=== PATIENT | female | born 1970 ===

== ENCOUNTER 2021-07-10 13:46 | Inpatient (IN) | payer MEDICAID, OTHER ==
[~2021-07-10] VITALS: Ht 162.6 cm; Wt 92.5 kg
[2021-07-10] MEDS ORDERED: SODIUM CHLORIDE 0.9% 1,000 ML IV ONE (14:45)
[2021-07-10] MEDS ORDERED: PIPERACILLIN-TAZOB 3.375GM 100 ML IV ONE (14:45)
[2021-07-10 15:09] LABS: Basophils # (auto) 0 10 ^3/uL (0-0.2); Hemoglobin 12.3 g/dL (12.2-16.2); Lymphocytes # (auto) 1.8 10 ^3/uL (0.4-5.4); Lymphocytes % (auto) 36.5 % (10.0-50.0); Mean Corpuscular Hemoglobin 26.7 pg (28.0-32.0); Mean Corpuscular Hgb Conc. 33.1 g/dL (32.0-36.0); Mean Corpuscular Volume 80.7 fL (80.0-100.0); Neutrophils # (auto) 2.6 10 ^3/uL (1.6-8.6); Nucleated Red Blood Cells % 0.1 %; Red Blood Cells 4.61 10^6/uL (4.0-5.20)
[2021-07-10 15:11] LABS: Basophils % (auto) 0.4 % (0.0-2.0); Eosinophils # (auto) 0.1 10 ^3/uL (0-0.8); Hematocrit 37.2 % (36.0-46.0); Monocytes # (auto) 0.3 10 ^3/uL (0-1.3); Neutrophils % (auto) 53.1 % (37.0-80.0); Red Cell Distribution Width 15.9 % (11.8-14.3); White Blood Cell 4.9 10^3/uL (4.4-10.8)
[2021-07-10 15:26] LABS: Albumin 2.7 g/dL (3.4-5.0); Anion Gap 8 (5-15); Blood Urea Nitrogen 14 mg/dL (7-18); Calcium 9.5 mg/dL (8.5-10.1); Carbon Dioxide 23 mmol/L (21-32); Chloride 109 mmol/L (98-107); GFR African American 218 mL/min; GFR Non-African American 180 mL/min; Glucose 92 mg/dL (74-106); Potassium 3.7 mmol/L (3.5-5.1); Sodium 140 mmol/L (136-145)
[2021-07-10 15:31] LABS: Alanine Aminotransferase 37 U/L (13-56); Alkaline Phosphatase 134 U/L (45-117); Aspartate Aminotransferase 67 U/L (15-37); Bilirubin, Total 0.5 mg/dL (0.2-1.0); Total Protein 7.6 g/dL (6.4-8.2)
[2021-07-10] MEDS ORDERED: DOCUSATE SOD 100 MG CAP PO PRN (18:15)
[2021-07-10] MEDS ORDERED: MORPHINE SULFATE INJECTION 2 MG/ML SYRG IV PRN (18:15)
[2021-07-10] MEDS ORDERED: NITROGLYCERIN 0.4 MG SL TAB SL PRN (18:15)
[2021-07-10] MEDS ORDERED: HYDROcodone-ACET 5/325MG TAB PO PRN (18:15)
[2021-07-10] MEDS ORDERED: VANCOMYCIN PER PHARMACY 0 MG IV SCH (18:15)
[2021-07-10] MEDS ORDERED: VANCOMYCIN 1GM/250ML 250 ML IV ONE (18:30)
[2021-07-10] MEDS: MORPHINE SULFATE INJECTION 2 MG/ML SYRG IV PRN (20:57)
[2021-07-10] MEDS: ONDANSETRON HCL 4 MG/2 ML VIAL IV PRN (20:57)
[2021-07-10] MEDS: VANCOMYCIN 1GM/250ML 250 ML IV SCH (22:27)
[2021-07-11] VITALS (7 sets, daily range): BP systolic 100–127; BP diastolic 46–76
[2021-07-11] MEDS: ACETAMINOPHEN 500 MG TAB PO PRN (00:18)
[2021-07-11] MEDS: MORPHINE SULFATE INJECTION 2 MG/ML SYRG IV PRN ×4 (01:47→21:34)
[2021-07-11 06:44] LABS: BUN/Creatinine Ratio 36.1; Calcium 9.4 mg/dL (8.5-10.1); Potassium 3.6 mmol/L (3.5-5.1)
[2021-07-11] MEDS: ONDANSETRON HCL 4 MG/2 ML VIAL IV PRN ×3 (08:34→21:34)
[2021-07-11] MEDS: levoFLOXacin 500MG 100 ML IV SCH (08:34)
[2021-07-11] MEDS: PANTOPRAZOLE 40 MG TAB PO SCH (09:59)
[2021-07-11] MEDS: ENOXAPARIN SOD 40 MG/0.4 ML SYRINGE SC SCH (09:59)
[2021-07-11] MEDS: VANCOMYCIN 1GM/250ML 250 ML IV SCH ×2 (10:00→21:16)
[2021-07-11] MEDS ORDERED: LACTULOSE 20Gm/30ML SOLN PO ONE (14:00)
[2021-07-11] MEDS: MUPIROCIN 2% OINT 15gm or 22gm TOP SCH (21:16)
[2021-07-11] MEDS: metroNIDAZOLE 500MG/100ML 100 ML IV SCH (22:45)
[2021-07-12 05:00] VITALS: BP 100/65
[2021-07-12] MEDS: metroNIDAZOLE 500MG/100ML 100 ML IV SCH ×3 (05:33→22:30)
[2021-07-12] MEDS: MORPHINE SULFATE INJECTION 2 MG/ML SYRG IV PRN ×3 (06:30→20:42)
[2021-07-12] MEDS ORDERED: IOHEXOL 300 MG/ML 100ML BOTTLE IJ ONE (08:39)
[2021-07-12 09:00] VITALS: BP 113/72
[2021-07-12] MEDS: ENOXAPARIN SOD 40 MG/0.4 ML SYRINGE SC SCH (09:29)
[2021-07-12] MEDS: PANTOPRAZOLE 40 MG TAB PO SCH (09:30)
[2021-07-12] MEDS: MUPIROCIN 2% OINT 15gm or 22gm TOP SCH ×2 (09:42→22:30)
[2021-07-12] MEDS: levoFLOXacin 500MG 100 ML IV SCH (09:42)
[2021-07-12] MEDS ORDERED: cefTRIAXone 1GM/50ML D5W 50 ML IV ONE (11:15)
[2021-07-12 13:00] VITALS: BP 120/78
[2021-07-12] MEDS: ONDANSETRON HCL 4 MG/2 ML VIAL IV PRN ×2 (16:35→20:42)
[2021-07-12 17:03] VITALS: BP 136/72
[2021-07-12 22:00] VITALS: BP 104/73
[2021-07-13] MEDS: MORPHINE SULFATE INJECTION 2 MG/ML SYRG IV PRN ×4 (02:13→20:16)
[2021-07-13] MEDS: ONDANSETRON HCL 4 MG/2 ML VIAL IV PRN ×4 (02:13→20:17)
[2021-07-13 05:00] VITALS: BP 123/83
[2021-07-13] MEDS: metroNIDAZOLE 500MG/100ML 100 ML IV SCH ×3 (05:39→22:18)
[2021-07-13] MEDS: cefTRIAXone 1GM/50ML D5W 50 ML IV SCH (10:01)
[2021-07-13] MEDS: MUPIROCIN 2% OINT 15gm or 22gm TOP SCH ×2 (10:02→22:18)
[2021-07-13] MEDS: ENOXAPARIN SOD 40 MG/0.4 ML SYRINGE SC SCH (10:02)
[2021-07-13] MEDS: PANTOPRAZOLE 40 MG TAB PO SCH (10:02)
[2021-07-13 12:51] VITALS: BP 121/83
[2021-07-13] MEDS: ACETAMINOPHEN 500 MG TAB PO PRN ×2 (16:30→19:06)
[2021-07-13 17:00] VITALS: BP 104/64
[2021-07-13 22:00] VITALS: BP 111/76
[2021-07-14] MEDS: MORPHINE SULFATE INJECTION 2 MG/ML SYRG IV PRN ×4 (01:45→21:10)
[2021-07-14] MEDS: ONDANSETRON HCL 4 MG/2 ML VIAL IV PRN (01:45)
[2021-07-14 05:00] VITALS: BP 127/80
[2021-07-14] MEDS: metroNIDAZOLE 500MG/100ML 100 ML IV SCH ×3 (05:40→21:09)
[2021-07-14 09:00] VITALS: BP 117/61
[2021-07-14] MEDS: cefTRIAXone 1GM/50ML D5W 50 ML IV SCH (09:00)
[2021-07-14] MEDS: PANTOPRAZOLE 40 MG TAB PO SCH (10:00)
[2021-07-14] MEDS: ENOXAPARIN SOD 40 MG/0.4 ML SYRINGE SC SCH (10:00)
[2021-07-14] MEDS: MUPIROCIN 2% OINT 15gm or 22gm TOP SCH ×2 (10:00→23:15)
[2021-07-14 12:47] VITALS: BP 106/58
[2021-07-14 17:00] VITALS: BP 120/68
[2021-07-14 22:00] VITALS: BP 125/71
[2021-07-15] MEDS ORDERED: diphenhdrAMINE HCL 25 MG CAP PO ONE (00:30)
[2021-07-15 05:00] VITALS: BP 128/66
[2021-07-15] MEDS: metroNIDAZOLE 500MG/100ML 100 ML IV SCH ×2 (05:17→14:00)
[2021-07-15] MEDS: MORPHINE SULFATE INJECTION 2 MG/ML SYRG IV PRN ×3 (05:19→15:45)
[2021-07-15] MEDS: ONDANSETRON HCL 4 MG/2 ML VIAL IV PRN (05:44)
[2021-07-15 09:00] VITALS: BP 103/67
[2021-07-15] MEDS: cefTRIAXone 1GM/50ML D5W 50 ML IV SCH (09:00)
[2021-07-15] MEDS: PANTOPRAZOLE 40 MG TAB PO SCH (11:00)
[2021-07-15] MEDS: MUPIROCIN 2% OINT 15gm or 22gm TOP SCH (11:00)
[2021-07-15] MEDS: ENOXAPARIN SOD 40 MG/0.4 ML SYRINGE SC SCH (11:00)
[2021-07-15 13:00] VITALS: BP 110/68
== END 2021-07-15 15:50 | DRG 380 ==
LOC: ER 13:46 → EDBD 13:46 → TELE 18:06 → TELE-WESTW 23:38
PROVIDERS: ADMIT Nurse Practitioner Acute Care; ATTEND Family Medicine
PROC: 05HY33Z Insertion of Infusion Device into Upper Vein, Percutaneous Approach (ICD-10-PCS; principal; 2021-07-14)
PROC: B54NZZA Ultrasonography of Left Upper Extremity Veins, Guidance (ICD-10-PCS; 2021-07-14)
DX: L89.150 Pressure ulcer of sacral region, unstageable (principal); E43 Unspecified severe protein-calorie malnutrition; G82.20 Paraplegia, unspecified; M46.28 Osteomyelitis of vertebra, sacral and sacrococcygeal region; M19.90 Unspecified osteoarthritis, unspecified site; N20.0 Calculus of kidney; Z20.822 Contact with and (suspected) exposure to COVID-19; E66.9 Obesity, unspecified; F41.9 Anxiety disorder, unspecified; Z74.01 Bed confinement status; Z68.35 Body mass index [BMI] 35.0-35.9, adult; Z87.891 Personal history of nicotine dependence; Z90.49 Acquired absence of other specified parts of digestive tract; Z90.5 Acquired absence of kidney; Z79.899 Other long term (current) drug therapy
CPT/HCPCS: 36415; 71045; 72192; 74177; 80048; 80053; 80202; 83605; 84484; 85025; 87040; 87077; 87081; 87186; 87205; 87426; 96365; 96367; 96375; G0378; J0696; J1956; J2405; J2543; J3490